=== PATIENT | female | born 1990 | race Caucasian/White ===

== ENCOUNTER 2022-11-06 19:11 | Emergency (ER) | payer BC ==
[~2022-11-06] VITALS: Ht 160 cm; Wt 57.2 kg
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
[2022-11-06] MEDS ORDERED: ONDANSETRON 4 MG/2 ML VIAL ONE (19:21)
--- NOTE | 2022-11-06 19:28 | NUR ---
EKG DONE AT BEDSIDE.
[2022-11-06] MEDS ORDERED: ONDANSETRON 4 MG/2 ML VIAL IV ONE (19:30)
--- NOTE | 2022-11-06 19:33 | NUR ---
PT VOMITTED 200 MLS LIGHT BROWN EMISIS.
--- NOTE | 2022-11-06 19:35 | NUR ---
CHEST X RAY DONE AT BEDSIDE.
--- NOTE | 2022-11-06 19:50 | NUR ---
PT UP OOB AMB TO BR WITH STEADY GAIT. URINE COLLECTED AND SENT TO LAB.
[2022-11-06 20:02] LABS: *BILIRUBIN,URIN NEGATIVE (NEGATIVE); *CLARITY,URINE CLEAR (CLEAR); *COLOR,URINE Other (YELLOW); *KETONES,URINE NEGATIVE (NEGATIVE); *UROBILINOGEN,URINE 0.2 E.U./dl (NORMAL); LEUKOCYTE ESTERASE ,URINE NEGATIVE (NEGATIVE); NITRITE, URINE POSITIVE (NEGATIVE); UGLUCOSE NEGATIVE (NEGATIVE)
[2022-11-06 20:12] LABS: *BLOOD, URINE TRACE (NEGATIVE)
[2022-11-06 20:13] LABS: SQUAMOUS EPITHELIAL CELL,UR FEW /HPF (NONE SEEN); WBC,URINE 0-3 /HPF (0-3); YEAST,URINE MODERATE /HPF (NONE SEEN)
[2022-11-06 20:14] LABS: *URINE HCG, QUAL NEGATIVE (NEGATIVE)
[2022-11-06 20:21] LABS: *AMPHETAMINE, URINE POSITIVE (NEGATIVE); *CANNABINOID, URINE POSITIVE (NEGATIVE); *COCCAINE, URINE POSITIVE (NEGATIVE); *PHENCYCLIDINE SCREEN,URINE NEGATIVE (NEGATIVE)
[2022-11-06] MEDS ORDERED: NALO4SPR NS (20:36)
--- NOTE | 2022-11-06 22:20 | NUR ---
[facility] CALLED FOR PT ASSISTANT OPERATIONS MANAGER.
[2022-11-06 22:30] VITALS: BP 124/91
--- NOTE | 2022-11-06 22:30 | NUR ---
PT A,A AND O X 4 WITH NO CP , NO SOB, NO ABD PAIN, NO N/V AND NAD OBSERVED. Patient discharged to home in stable condition. Written and verbal after care instructions given. Patient verbalizes understanding of instructions. Stressed follow up or return to ER for worsening s/s. PT AMB OUT TO WAITING RM WITH STEADY GAIT, WAITING FOR TAXI.
--- NOTE | 2022-11-06 22:54 | NUR ---
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
== END 2022-11-06 22:54 | disposition home or self-care (01) ==
LOC: ER 19:13
DX: T40.411A Poisoning by fentanyl or fentanyl analogs, accidental (unintentional), initial encounter (principal); F15.129 Other stimulant abuse with intoxication, unspecified; F19.90 Other psychoactive substance use, unspecified, uncomplicated; F17.210 Nicotine dependence, cigarettes, uncomplicated; Z71.6 Tobacco abuse counseling; Z79.899 Other long term (current) drug therapy; Y92.89 Other specified places as the place of occurrence of the external cause
CPT/HCPCS: 99285; 96374; 71045; 99406; 84703; 93005; 80307; 81001; J2405; A4663